=== PATIENT | female | born 1930 | race Caucasian/White ===

== ENCOUNTER → 2016-10-13 | Outpatient (CLI) | payer MEDICARE, OTHER | LOC: YCHH 10:57 | PROVIDERS: ATTEND Family Medicine | DX: E03.9 Hypothyroidism, unspecified (principal); I10 Essential (primary) hypertension; E78.2 Mixed hyperlipidemia ==

== ENCOUNTER → 2016-10-16 | Outpatient (CLI) | payer MEDICARE, OTHER ==
--- NOTE | 2016-10-17 10:11 | MAM ---
EXAM DESCRIPTION: MAMMO BREAST SCREENING BILATERAL CAD, images were reviewed with CAD technology, R2 computer-aided detection. CLINICAL HISTORY: [facility]. COMPARISON: 2013. FINDINGS: Routine views are obtained. Scattered glandular pattern with increased mammographic density with stable distribution. Benign calcifications. No architectural distortion or dominant mass.. IMPRESSION: Benign exam. BIRAD CATEGORY: 2 BENIGN RECOMMENDATIONS: FOLLOW-UP: Routine screening mammogram in one year. According to the [employer], yearly mammograms are recommended starting at age 40 and continuing as long as a woman is in good health. Any breast change noted on a breast self-exam should be reported promptly to the patient's healthcare provider. Breast MRI is recommended for women with an approximately 20-25% or greater lifetime risk of breast cancer, including women with a strong family history of breast or ovarian cancer and women who have been treated for Hodgkin's disease. Electronically signed by: Maria De Jesus Robertson 10/17/2016 10:09
== END ==
LOC: MAMMO 13:13
PROVIDERS: ATTEND Family Medicine
DX: Z12.31 Encounter for screening mammogram for malignant neoplasm of breast (principal)
CPT/HCPCS: 77052; G0202

== ENCOUNTER → 2016-10-26 | Outpatient (CLI) | payer MEDICARE, OTHER ==
--- NOTE | 2016-10-26 14:08 | NM ---
EXAM DESCRIPTION: NM BONE SCAN WHOLE BODY CLINICAL HISTORY: 86 y/o F, LEFT ARM PAIN COMPARISON: None TECHNIQUE: Whole body bone scan was performed after the patient was administered 28 mCi of 99 M technetium MDP. FINDINGS: Symmetrical uptake noted within bilateral kidneys with excretion into the urinary bladder. There is symmetrical uptake within the osseous structures. There is asymmetrical abnormal uptake noted within the posterior aspect of the left mid spine. This may be secondary to facet degeneration. No additional abnormal osseous uptake on today's study. IMPRESSION: There is abnormal uptake noted within the region of the left mid cervical spine, likely the posterior elements such as a facet joint. This could account for patient's left arm pain. Recommend MRI or CT for further evaluation. No additional abnormal uptake noted on today's study. No abnormal uptake noted within the proximal left upper extremity on today's study. Electronically signed by: Melvin Stuart MD 10/26/2016 14:06
== END ==
LOC: NM 08:55
PROVIDERS: ATTEND Family Medicine
DX: M79.602 Pain in left arm (principal)

== ENCOUNTER → 2016-11-06 | Outpatient (CLI) | payer MEDICARE, OTHER ==
--- NOTE | 2016-11-07 08:21 | MRI ---
EXAM DESCRIPTION: MRI of the cervical spine CLINICAL HISTORY: Chronic neck pain with reticular some COMPARISON: None. TECHNIQUE: Multiplanar MRI of the cervical spine was performed without contrast. GENERAL Cervical vertebral body alignment is unremarkable.Vertebral body heights are maintained. The craniocervical and atlantoaxial junctions are unremarkable. No aggressive osseous lesion. C2-3 Facet degeneration, but no spinal canal or neural foraminal narrowing. C3-4 Broad-based 3 mm posterior disc osteophyte complex. There is moderate bilateral neural foraminal narrowing. The midline diameter of the spinal canal is adequate at 11 mm. C4-5 Moderate bilateral neural foraminal narrowing, left greater than right. The midline diameter of the spinal canal is adequate measuring 1.3 cm. C5-6 Asymmetric to the right broad-based posterior disc osteophyte complex. The midline diameter of the spinal canal is adequate measuring 1 cm. There is severe right and moderate left neural foraminal narrowing. C6-7 Broad-based posterior disc osteophyte complex. The midline diameter of the spinal canal is adequate at 1.2 cm. There is mild bilateral neural foraminal narrowing. C7-T1 No significant findings. CORD AND INTRASPINAL No cervical cord or intraspinal lesions. IMPRESSION: Today's exam demonstrates multilevel degenerative disc disease and facet disease with neural foraminal narrowing noted at multiple levels. There is no spinal canal narrowing at any level. At C3-4 there is subtle contour abnormality of the anterior margin of the cervical spinal cord; however, in the supine imaging position there is no cord contact. Electronically signed by: Melvin Stuart MD 11/07/2016 08:19
== END | disposition home or self-care (01) ==
LOC: MRI 11:04
PROVIDERS: ATTEND Family Medicine
DX: M54.12 Radiculopathy, cervical region (principal)

== ENCOUNTER → 2017-02-01 | Outpatient (CLI) | payer MEDICARE, OTHER | LOC: GMAB 16:45 | PROVIDERS: ATTEND Family Medicine | DX: I48.0 Paroxysmal atrial fibrillation (principal) ==

== ENCOUNTER → 2017-10-17 | Outpatient (CLI) | payer MEDICARE, OTHER ==
--- NOTE | 2017-10-18 09:15 | MAM ---
EXAM DESCRIPTION: 3D Screening BILATERAL : Digital Mammography. CLINICAL HISTORY: 87 years Female SCREENING . No complaints. Remote family history of cancer. Postmenopausal. No HRT. COMPARISON: 2-D digital screening bilateral study 10/16/2016 and 10/18/2015.. Report from prior examination also reviewed. TECHNIQUE: Bilateral CC and MLO projection full-field images, 3-D tomosynthesis digital mammographic technique. Also bilateral synthesized CC/ MLO full-field images. CAD not utilized. FINDINGS: The breast parenchymal density pattern is: Scattered areas of fibroglandular density. No skin thickening or nipple retraction bilateral intramammary and axillary lymph nodes. Bilateral microcalcifications coarse calcifications and vascular calcifications. Duct-like calcifications bilaterally more on the left. No focal, stellate mass or density, focal asymmetry , and no suspicious microcalcifications bilaterally. Stable mammograms compared to prior study, taking into account differences in mammographic technique IMPRESSION: BI-RADS CATEGORY: 2 - BENIGN FINDINGS. FOLLOW UP: Routine digital bilateral screening, one year interval from October 2017. Written communication explaining the IMPRESSION and follow-up, will be mailed to the patient and referring health care provider. According to the [employer], yearly mammograms are recommended starting at age 40 and continuing as long as a woman is in good health. Any breast change noted on a breast self-exam should be reported promptly to the patient's healthcare provider. Breast MRI is recommended for women with an approximately 20-25% or greater lifetime risk of breast cancer, including women with a strong family history of breast or ovarian cancer and women who have been treated for Hodgkin's disease. A negative mammographic report should not delay tissue diagnosis in patients with significant clinical history or physical findings. Extremely dense breast tissue limits the sensitivity of digital mammography. Electronically signed by: Colt Josue MD 10/18/2017 9:14 AM [employer]
== END | disposition home or self-care (01) ==
LOC: MAMMO 11:00
PROVIDERS: ATTEND Family Medicine
DX: Z12.31 Encounter for screening mammogram for malignant neoplasm of breast (principal)

== ENCOUNTER 2017-10-26 11:39 | Emergency (ER) | payer MEDICARE, OTHER ==
--- NOTE | 2017-10-26 12:00 | ED.PDOC ---
History of Present Illness - General Chief Complaint: Cardiovascular Problem Stated Complaint: dizziness Time Seen by Provider: 10/26/17 11:45 Source: patient Exam Limitations: no limitations - History of Present Illness Timing/Duration: 1-3 hours Severity: mild Location: other - NO CHEST PAIN ANLY DIZZINESS THAT WAS VERY SLIGHT AND HAS RESOLVED . PT HR WAS 106 PER VNS Activities at Onset: none Prior Chest Pain/Cardiac Workup: other - A FIB Improving Factors: nothing Worsening Factors: nothing Allergies/Adverse Reactions: Allergies Codeine Allergy (Verified 09/06/15 09:25) Home Medications: Ambulatory Orders Calcium 600 mg PO DAILY 09/06/15 Levothyroxine Sodium 0.1 mg PO DAILY 09/06/15 Lisinopril 40 mg PO BID 09/06/15 Metoprolol Tartrate 50 mg PO DAILY 09/06/15 Simvastatin 40 mg PO BEDTIME 09/06/15 Warfarin Sodium 5 mg PO DAILY 09/06/15 Review of Systems - Review of Systems Constitutional: States: other - DIZZINESS THAT HAS RESOLVED EENTM: States: no symptoms reported Respiratory: States: no symptoms reported Cardiology: States: no symptoms reported Gastrointestinal/Abdominal: States: no symptoms reported Genitourinary: States: no symptoms reported Musculoskeletal: States: no symptoms reported Skin: States: no symptoms reported Neurological: States: no symptoms reported Endocrine: States: no symptoms reported Hematologic/Lymphatic: States: no symptoms reported Past Medical History (General) - Patient Medical History Hx Cardiac Disorders: Yes - A FIB Hx Hypertension: Yes Hx Thyroid Disease: Yes Surgical History: other - THYROIDECTOMY - Female History Patient : No Family Medical History - Family History Mother Family History: Unknown Physical Exam - Physical Exam General Appearance: Alert, Comfortable, No apparent distress, Well Developed, Well Groomed, Well Hydrated, Well Nourished Eyes, Ears, Nose, Throat Exam: PERRL/EOMI, normal ENT inspection, TMs normal, pharynx normal Neck: non-tender, full range of motion, supple, normal inspection Respiratory: chest non-tender, lungs clear, normal breath sounds, no respiratory distress, no accessory muscle use Cardiovascular/Chest: normal peripheral pulses, regular rate, rhythm, no gallop , no JVD, no murmur, other - 1 + PITTING BILATERAL TIBIAL REGION Progress - EKG/XRAY/CT EKG: Sinus, no ST T wave changes - 1ST DEGREE AV BLOCK/ RATE 69/MI 212/QRS 68/ QTC 443/AXES 28 Departure - Departure Clinical Impression: Dehydration Time of Disposition: 14:18 Disposition: Discharge to Home or Self Care Departure Forms: Patient Portal Self Enrollment, ED Discharge - Pt. Copy Activity: increase activity as tolerated Referrals: David Andrade MD [Primary Care Provider] - 1-2 Weeks Home Medications: Ambulatory Orders Calcium 600 mg PO DAILY 09/06/15 Levothyroxine Sodium 0.1 mg PO DAILY 09/06/15 Lisinopril 40 mg PO BID 09/06/15 Metoprolol Tartrate 50 mg PO DAILY 09/06/15 Simvastatin 40 mg PO BEDTIME 09/06/15 Warfarin Sodium 5 mg PO DAILY 09/06/15
[2017-10-26 12:03] VITALS: TEMP 96.3
--- NOTE | 2017-10-26 12:37 | RAD ---
EXAM DESCRIPTION: Chest,1 View CLINICAL HISTORY: CHEST PAIN COMPARISON: None FINDINGS: Portable frontal view the thorax. No consolidation, effusion or pneumothorax is demonstrated. Senescent bronchial calcifications. Heart size upper limits of normal for technique. Mild ectasia thoracic aorta commonly associated with chronic hypertension. No acute osseous pathology is demonstrated. IMPRESSION: Negative portable chest. Electronically signed by: Henrry Oakley MD 10/26/2017 12:36 PM [employer]
[2017-10-26] MEDS ORDERED: SODIUM CHLORIDE 0.9% 1000ML 1,000 ML IVS ONE (13:16)
[2017-10-26 14:08] VITALS: BP 137/70
[2017-10-26 14:58] VITALS: O2SAT 100
== END 2017-10-26 14:57 | disposition home or self-care (01) ==
LOC: ER 11:39
DX: E86.0 Dehydration (principal); I44.0 Atrioventricular block, first degree; I48.91 Unspecified atrial fibrillation; I10 Essential (primary) hypertension; E07.9 Disorder of thyroid, unspecified; Z79.01 Long term (current) use of anticoagulants; Z88.6 Allergy status to analgesic agent

== ENCOUNTER → 2017-11-09 | Outpatient (CLI) | payer MEDICARE, OTHER | LOC: YCHH 11:33 | PROVIDERS: ATTEND Family Medicine | DX: E03.9 Hypothyroidism, unspecified (principal); I10 Essential (primary) hypertension; D64.9 Anemia, unspecified; E78.5 Hyperlipidemia, unspecified ==